=== PATIENT | female | born 1965 | race American Indian/Alaskan Native ===

== ENCOUNTER 2021-08-09 10:50 | Emergency (ER) | payer OTHER ==
[~2021-08-09] VITALS: Ht 157.5 cm; Wt 57.5 kg
[2021-08-09 11:18] VITALS: BP 121/82
[2021-08-09] MEDS ORDERED: ondansetron 4mg rapidly disintigrating tab PO ONE (12:35)
[2021-08-09] MEDS ORDERED: ONDA4TAB6 PO (12:39)
== END 2021-08-09 13:11 | disposition home or self-care (01) ==
LOC: ER 10:51
DX: U07.1 COVID-19 (principal); R11.2 Nausea with vomiting, unspecified; E86.0 Dehydration; Z79.899 Other long term (current) drug therapy
CPT/HCPCS: 99283